=== PATIENT | male | born 1955 | race Caucasian/White ===

== ENCOUNTER → 2017-07-04 | Outpatient (CLI) | payer OTHER ==
[2017-07-04 10:29] LABS: WET PREP SPERM NONE SEEN /HPF (NONE SEEN)
[2017-07-04 10:30] LABS: SEMEN WET PREP WBC 0-2 /HPF
== END ==
LOC: CLAB 09:25
PROVIDERS: ATTEND Family Medicine
DX: Z98.52 Vasectomy status (principal)
CPT/HCPCS: 89321